=== PATIENT | male | born 1945 | race Caucasian/White ===

== ENCOUNTER 2021-02-01 14:21 | Inpatient (IN) | payer MEDICARE, OTHER ==
[~2021-02-01] VITALS: Ht 175.3 cm; Wt 80.4 kg
[2021-02-01 14:23] VITALS: BP 167/81
[2021-02-01] MEDS ORDERED: DILTIAZEM 25MG INJ IVP SCH (15:30)
[2021-02-01 15:45] LABS: BASOPHILS % (AUTO) 0.2 % (0.0-5.0); HEMATOCRIT 25.7 % (42-54); LYMPHOCYTES % (AUTO) 5.9 % (21.0-51.0); MEAN CORPUSCULAR HEMOGLOBIN 29.4 pg (27.0-33.0); MEAN CORPUSCULAR HGB CONC 34.2 g/dL (32.0-36.0); MONOCYTES % (AUTO) 6.8 % (3.0-13.0); NEUTROPHILS % (AUTO) 86.7 % (40.0-77.0); PLATELET COUNT (AUTO) 164 K/uL (130-400); RED BLOOD CELL COUNT(AUTO) 2.99 MIL/uL (4.50-6.20); RED CELL DISTRIBUTION WIDTH 13.1 % (11.0-15.5); WHITE BLOOD COUNT (AUTO) 4.6 K/uL (4.8-10.8)
[2021-02-01] MEDS ORDERED: DILTIAZEM 50MG VIAL IV ONE (15:49)
[2021-02-01 15:58] LABS: CREATININE 4.7 mg/dL (0.5-1.5); POTASSIUM 3.9 mmol/L (3.5-5.1)
[2021-02-01 16:00] VITALS: BP 115/68
[2021-02-01 16:02] LABS: ALBUMIN 3.1 g/dL (3.5-5.0); BILIRUBIN,TOTAL 1.4 mg/dL (0.2-1.0); MAGNESIUM 1.1 mg/dL (1.80-2.40); PHOSPHORUS 4.4 mg/dL (2.5-4.9); TOTAL PROTEIN, SERUM 7.1 g/dL (6.0-8.3)
[2021-02-01 16:09] LABS: APPEARANCE,URINE CLOUDY (CLEAR); BILIRUBIN,URINE NEGATIVE (NEGATIVE); COLOR,URINE RED (YELLOW); GLUCOSE, URINE (UA) NEGATIVE (NEGATIVE); KETONES,URINE 5 mg/dL (NEGATIVE); LEUKOCYTE ESTERASE ,URINE MODERATE (NEGATIVE); NITRATE,URINE POSITIVE (NEGATIVE); OCCULT BLOOD,URINE LARGE (NEGATIVE); PROTEIN,URINE >=300 mg/dL (NEGATIVE)
[2021-02-01 16:17] LABS: BACTERIA,URINE Many /HPF (None Seen); MUCUS,URINE Few LPF (None Seen); SQUAMOUS EPITHELIAL CELL,UR 0-2 /HPF (0-2); WBC,URINE 51-100 /HPF (0-1)
[2021-02-01] MEDS ORDERED: CEFTRIAXONE 1G VIAL IVP ONE (17:00)
[2021-02-01] MEDS ORDERED: DILTIAZEM 25MG INJ IVP PRN (17:00)
[2021-02-01] MEDS ORDERED: 0.9%NACL 50ML 50 ML IV ONE (17:19)
[2021-02-01] MEDS ORDERED: LACTULOSE 20 GM/30 ML UDCUP PO PRN (17:30)
[2021-02-01] MEDS ORDERED: ONDANSETRON 4MG INJ IV PRN (17:30)
[2021-02-01] MEDS ORDERED: CEFTRIAXONE 1G VIAL IV SCH (17:30)
[2021-02-01] MEDS ORDERED: DILTIAZEM 125 MG/25 ML INJ IV ONE (17:42)
[2021-02-01] MEDS: 0.9%NACL 1000ML 1,000 ML IV SCH (18:12)
[2021-02-01 18:20] LABS: INR 1.27 (0.85-1.15); PROTHROMBIN TIME 13.5 SEC (9.6-11.6)
[2021-02-01 18:21] LABS: PARTIAL THROMBOPLASTIN TIME 50.6 SEC (26.3-35.5)
[2021-02-01] MEDS: MAGNESIUM 2GM PREMIX 50ML 50 ML IV PRN (18:32)
[2021-02-01] MEDS: DILTIAZEM 125MG+100 ML NS 125 ML IV PRN (18:49)
[2021-02-01 18:54] VITALS: BP 120/64
[2021-02-01] MEDS ORDERED: DILTIAZEM 125 MG/25 ML INJ 125 MG in 0.9%NACL 100ML 100 ML IV SCH (19:00)
[2021-02-01 19:08] LABS: HEMATOCRIT 25.1 % (42-54)
[2021-02-01 19:21] LABS: HEMOGLOBIN A1C 5.7 % (4.0-6.0)
[2021-02-01 19:36] LABS: THYROID STIMULATING HORMONE 3.01 uIU/mL (0.36-3.74)
[2021-02-01 19:38] VITALS: BP 113/75
[2021-02-01 20:31] VITALS: BP 120/68
[2021-02-01] MEDS: ACETAMINOPHEN 325 MG TAB PO PRN (20:39)
[2021-02-01 22:36] VITALS: BP 101/58
[2021-02-02] VITALS (10 sets, daily range): BP systolic 98–115; BP diastolic 47–63
[2021-02-02 01:25] LABS: HEMATOCRIT 24.2 % (42-54)
[2021-02-02] MEDS: 0.9%NACL 1000ML 1,000 ML IV SCH (06:54)
[2021-02-02 07:16] LABS: HEMATOCRIT 25.4 % (42-54); LYMPHOCYTES % (AUTO) 7.9 % (21.0-51.0); MEAN CORPUSCULAR HEMOGLOBIN 29.3 pg (27.0-33.0); MEAN CORPUSCULAR HGB CONC 33.9 g/dL (32.0-36.0); MEAN CORPUSCULAR VOLUME 86.4 fL (79-99); NEUTROPHILS % (AUTO) 82.5 % (40.0-77.0); PLATELET COUNT (AUTO) 123 K/uL (130-400); RED BLOOD CELL COUNT(AUTO) 2.94 MIL/uL (4.50-6.20); RED CELL DISTRIBUTION WIDTH 13.2 % (11.0-15.5); WHITE BLOOD COUNT (AUTO) 3.4 K/uL (4.8-10.8)
[2021-02-02 07:29] LABS: CREATININE 4.4 mg/dL (0.5-1.5); MAGNESIUM 1.7 mg/dL (1.80-2.40)
[2021-02-02] MEDS ORDERED: APIX5TAB PO (07:53)
[2021-02-02] MEDS: PANTOPRAZOLE 40 MG TAB DR PO SCH (09:28)
[2021-02-02] MEDS: ACETAMINOPHEN 325 MG TAB PO PRN (09:29)
[2021-02-02] MEDS ORDERED: PIP/TAZ ZOSYN 3.375G 3.375 GM VIAL IVPB SCH (11:00)
[2021-02-02 13:44] LABS: URIC ACID 6.7 mg/dL (2.6-7.2)
[2021-02-02 13:51] LABS: CRP QUANTITATIVE 347.1 mg/L (0.00-9.0)
[2021-02-02] MEDS: ZOSYN 3.375GM+NS 50ML 50 ML IV SCH ×2 (13:58→22:43)
[2021-02-02] MEDS ORDERED: PHARMACY COMMUNICATION MISC SCH (15:30)
[2021-02-02] MEDS: DILTIAZEM 180MG SR CAP PO SCH (18:01)
[2021-02-02] MEDS: LINEZOLID 600 MG/ISO-OSM 300 ML IV SCH (18:02)
[2021-02-02] MEDS: LACTATED RINGERS 1000ML 1,000 ML IV SCH (18:02)
[2021-02-02] MEDS ORDERED: THIAMINE HCL 100 MG TABLET PO ONE (19:30)
[2021-02-02] MEDS ORDERED: FOLIC ACID 1 MG TABLET PO ONE (19:30)
[2021-02-02] MEDS ORDERED: FOLIC ACID 1 MG TABLET ONE (20:43)
[2021-02-02] MEDS ORDERED: THIAMINE HCL 100 MG TABLET ONE (20:43)
[2021-02-03] VITALS (40 sets, daily range): BP systolic 71–103; BP diastolic 27–62
[2021-02-03 04:38] LABS: HEMATOCRIT 21.6 % (42-54); MEAN CORPUSCULAR HEMOGLOBIN 29.3 pg (27.0-33.0); MEAN CORPUSCULAR HGB CONC 34.7 g/dL (32.0-36.0); MEAN CORPUSCULAR VOLUME 84.4 fL (79-99); PLATELET COUNT (AUTO) 118 K/uL (130-400); RED BLOOD CELL COUNT(AUTO) 2.56 MIL/uL (4.50-6.20); RED CELL DISTRIBUTION WIDTH 12.9 % (11.0-15.5); WHITE BLOOD COUNT (AUTO) 2.7 K/uL (4.8-10.8)
[2021-02-03] MEDS: LINEZOLID 600 MG/ISO-OSM 300 ML IV SCH ×2 (04:39→16:54)
[2021-02-03 04:50] LABS: BILIRUBIN,TOTAL 0.9 mg/dL (0.2-1.0); CREATININE 4.9 mg/dL (0.5-1.5); MAGNESIUM 1.6 mg/dL (1.80-2.40); PHOSPHORUS 6.1 mg/dL (2.5-4.9); POTASSIUM 4.2 mmol/L (3.5-5.1); TOTAL PROTEIN, SERUM 5.5 g/dL (6.0-8.3); URIC ACID 6.7 mg/dL (2.6-7.2)
[2021-02-03 06:00] LABS: INR 1.07 (0.85-1.15); PROTHROMBIN TIME 11.6 SEC (9.6-11.6)
[2021-02-03 06:01] LABS: PARTIAL THROMBOPLASTIN TIME 56.9 SEC (26.3-35.5)
[2021-02-03 06:05] LABS: BAND NEUTROPHILS % (MANUAL) 3 % (0-2); LYMPHOCYTES % (MANUAL) 13 % (22-44); MONOCYTES % (MANUAL) 4 % (2-9); REACTIVE LYMPHOCYTES 2 % (0-0); SEGMENTED NEUTROPHILS % 78 % (40-70)
[2021-02-03 06:06] LABS: MAN.DIFF COMMENT-IMPRESSION MANUAL DIFFERENTIAL
[2021-02-03 06:09] LABS: PLATELET MORPHOLOGY COMMENT ADEQUATE
[2021-02-03] MEDS: DILTIAZEM 180MG SR CAP PO SCH (07:12)
[2021-02-03] MEDS: PANTOPRAZOLE 40 MG TAB DR PO SCH (07:12)
[2021-02-03] MEDS: DILTIAZEM 125MG+100 ML NS 125 ML IV PRN (07:52)
[2021-02-03] MEDS: MAGNESIUM 2GM PREMIX 50ML 50 ML IV PRN (08:23)
[2021-02-03] MEDS: METOPROLOL TARTRATE 25 MG TAB PO SCH ×2 (08:23→20:29)
[2021-02-03] MEDS: LACTATED RINGERS 1000ML 1,000 ML IV SCH (08:23)
[2021-02-03] MEDS: THIAMINE HCL 100 MG TABLET PO SCH (08:29)
[2021-02-03] MEDS: FOLIC ACID 1 MG TABLET PO SCH (08:29)
[2021-02-03] MEDS ORDERED: LIDOCAINE PF 100MG/5ML (2%) SYRINGE 5ML ONE (10:25)
[2021-02-03] MEDS ORDERED: PHENYLEPHRINE HCL 10 MG/ML 1ML VIAL IV ONE (10:25)
[2021-02-03] MEDS ORDERED: MIDAZOLAM HCL 1 MG/ML 5ML VIAL ONE (10:26)
[2021-02-03] MEDS ORDERED: ROPIVACAINE 0.5% 5MG/ML 30ML IJ ONE (10:28)
[2021-02-03] MEDS ORDERED: LIDOCAINE HCL 400MG/20ML VIAL ONE (10:28)
[2021-02-03] MEDS: ZOSYN 3.375GM+NS 50ML 50 ML IV SCH ×2 (10:44→22:44)
[2021-02-03] MEDS ORDERED: FENTANYL CITRATE PF 50 MCG/1 ML 2ML VIAL ONE (11:36)
[2021-02-03] MEDS ORDERED: PROPOFOL 10 MG/ML 20ML VIAL IV ONE (11:38)
[2021-02-03] MEDS ORDERED: TRANEXAMIC ACID 1000MG/10ML ONE ×3 (11:50)
[2021-02-03] MEDS ORDERED: KETAMINE 50MG/ML SYRINGE 50 MG/ML DISP.SYRIN IV ONE (11:54)
[2021-02-03] MEDS: SODIUM HYPOCHLORITE 0.125% 473 ML SOLUTION TP SCH (12:00)
[2021-02-03 14:35] LABS: LYMPHOCYTES % (AUTO) 7.6 % (21.0-51.0); MEAN CORPUSCULAR HEMOGLOBIN 29.1 pg (27.0-33.0); MEAN CORPUSCULAR HGB CONC 34.3 g/dL (32.0-36.0); MEAN CORPUSCULAR VOLUME 84.8 fL (79-99); MONOCYTES % (AUTO) 14.5 % (3.0-13.0); NEUTROPHILS % (AUTO) 77.3 % (40.0-77.0); PLATELET COUNT (AUTO) 125 K/uL (130-400); RED BLOOD CELL COUNT(AUTO) 2.44 MIL/uL (4.50-6.20); RED CELL DISTRIBUTION WIDTH 13.1 % (11.0-15.5); WHITE BLOOD COUNT (AUTO) 3.2 K/uL (4.8-10.8)
[2021-02-03 14:39] LABS: HEMATOCRIT 20.7 % (42-54)
[2021-02-03 14:51] LABS: CREATININE 4.7 mg/dL (0.5-1.5); MAGNESIUM 1.8 mg/dL (1.80-2.40); POTASSIUM 3.9 mmol/L (3.5-5.1)
[2021-02-03 15:45] LABS: % IRON SATURATION 6.8 % (30-44)
[2021-02-03] MEDS: MIDODRINE HCL 5 MG TABLET PO SCH ×2 (16:54→20:30)
[2021-02-03] MEDS: EPOETIN ALFA-EPBX (ESRD) 10,000 UNIT/ML VIAL SQ SCH (16:54)
[2021-02-03 19:15] LABS: HEMATOCRIT 24.2 % (42-54)
[2021-02-03] MEDS ORDERED: 0.9% NACL 500ML IV.SOLN 500 ML IV SCH (22:30)
[2021-02-03] MEDS ORDERED: NOREPINEPHRINE 4MG/NS 250ML 250 ML IV SCH (22:30)
[2021-02-04] VITALS (49 sets, daily range): BP systolic 87–132; BP diastolic 45–93
[2021-02-04 00:42] LABS: HEMATOCRIT 24.5 % (42-54)
[2021-02-04] MEDS ORDERED: NOREPINEPHRINE 4MG/NS 250ML 250 ML IV ONE (02:11)
[2021-02-04] MEDS ORDERED: NOREPINEPHRINE 4MG/NS 250ML 250 ML IV SCH (03:00)
[2021-02-04 03:41] LABS: EOSINOPHILS % (AUTO) 0.6 % (0.0-8.0); HEMATOCRIT 22.5 % (42-54); LYMPHOCYTES % (AUTO) 12.6 % (21.0-51.0); MEAN CORPUSCULAR HEMOGLOBIN 29.3 pg (27.0-33.0); MEAN CORPUSCULAR HGB CONC 33.3 g/dL (32.0-36.0); MEAN CORPUSCULAR VOLUME 87.9 fL (79-99); MONOCYTES % (AUTO) 15.9 % (3.0-13.0); PLATELET COUNT (AUTO) 143 K/uL (130-400); RED BLOOD CELL COUNT(AUTO) 2.56 MIL/uL (4.50-6.20); RED CELL DISTRIBUTION WIDTH 13.2 % (11.0-15.5); WHITE BLOOD COUNT (AUTO) 3.4 K/uL (4.8-10.8)
[2021-02-04 03:59] LABS: ALBUMIN 1.8 g/dL (3.5-5.0); BILIRUBIN,TOTAL 0.7 mg/dL (0.2-1.0); CREATININE 4.9 mg/dL (0.5-1.5); MAGNESIUM 1.9 mg/dL (1.80-2.40); POTASSIUM 3.8 mmol/L (3.5-5.1); TOTAL PROTEIN, SERUM 5.4 g/dL (6.0-8.3)
[2021-02-04 04:48] LABS: ERYTHROCYTE SEDIMENTATION RATE 129 MM/HR (0-20)
[2021-02-04] MEDS: LINEZOLID 600 MG/ISO-OSM 300 ML IV SCH ×2 (05:03→17:10)
[2021-02-04] MEDS: THIAMINE HCL 100 MG TABLET PO SCH (08:41)
[2021-02-04] MEDS: HYDROCODONE/ACETAMINOPHEN 10/325 MG TAB PO PRN (08:41)
[2021-02-04] MEDS: MIDODRINE HCL 5 MG TABLET PO SCH ×3 (08:41→20:57)
[2021-02-04] MEDS: PANTOPRAZOLE 40 MG TAB DR PO SCH (08:42)
[2021-02-04] MEDS: FOLIC ACID 1 MG TABLET PO SCH (08:42)
[2021-02-04] MEDS: METOPROLOL TARTRATE 25 MG TAB PO SCH ×2 (09:00→20:35)
[2021-02-04] MEDS: DILTIAZEM 180MG SR CAP PO SCH (09:00)
[2021-02-04] MEDS: ZOSYN 3.375GM+NS 50ML 50 ML IV SCH ×2 (11:39→20:57)
[2021-02-04] MEDS: SODIUM HYPOCHLORITE 0.125% 473 ML SOLUTION TP SCH (12:00)
[2021-02-04 12:07] LABS: HEMATOCRIT 24.4 % (42-54)
[2021-02-05] VITALS (36 sets, daily range): BP systolic 82–128; BP diastolic 30–76
[2021-02-05] MEDS: DILTIAZEM 180MG SR CAP PO SCH ×2 (01:30→08:13)
[2021-02-05] MEDS: MIDODRINE HCL 5 MG TABLET PO SCH ×4 (01:30→21:03)
[2021-02-05] MEDS ORDERED: DILTIAZEM 25MG INJ IVP SCH (02:00)
[2021-02-05] MEDS: DILTIAZEM 125MG+100 ML NS 125 ML IV PRN (02:10)
[2021-02-05 03:41] LABS: HEMATOCRIT 21.6 % (42-54); MEAN CORPUSCULAR HEMOGLOBIN 28.6 pg (27.0-33.0); MEAN CORPUSCULAR HGB CONC 33.3 g/dL (32.0-36.0); MEAN CORPUSCULAR VOLUME 85.7 fL (79-99); RED BLOOD CELL COUNT(AUTO) 2.52 MIL/uL (4.50-6.20); RED CELL DISTRIBUTION WIDTH 13.2 % (11.0-15.5); WHITE BLOOD COUNT (AUTO) 1.9 K/uL (4.8-10.8)
[2021-02-05 03:53] LABS: CREATININE 5.1 mg/dL (0.5-1.5); POTASSIUM 3.4 mmol/L (3.5-5.1)
[2021-02-05] MEDS: LINEZOLID 600 MG/ISO-OSM 300 ML IV SCH ×2 (06:11→18:53)
[2021-02-05 07:28] LABS: ABG BASE EXCESS -8.3 mmol/L (-2.0-3.0); ABG OXYGEN SATURATION 95.7 % (95.0-99.0); ABG PCO2 26 mmHg (35-48)
[2021-02-05] MEDS: PANTOPRAZOLE 40 MG TAB DR PO SCH (08:12)
[2021-02-05] MEDS: THIAMINE HCL 100 MG TABLET PO SCH (08:13)
[2021-02-05] MEDS: FOLIC ACID 1 MG TABLET PO SCH (08:13)
[2021-02-05] MEDS: METOPROLOL TARTRATE 25 MG TAB PO SCH ×2 (08:14→21:03)
[2021-02-05] MEDS: SODIUM HYPOCHLORITE 0.125% 473 ML SOLUTION TP SCH (12:00)
[2021-02-05] MEDS: MEROPENEM 1 GM VIAL IVP SCH (13:30)
[2021-02-05 16:25] LABS: MEAN CORPUSCULAR HEMOGLOBIN 29.2 pg (27.0-33.0); MEAN CORPUSCULAR HGB CONC 33.3 g/dL (32.0-36.0); MEAN CORPUSCULAR VOLUME 87.5 fL (79-99); PLATELET COUNT (AUTO) 168 K/uL (130-400); RED CELL DISTRIBUTION WIDTH 13.5 % (11.0-15.5); WHITE BLOOD COUNT (AUTO) 1.9 K/uL (4.8-10.8)
[2021-02-05 16:26] LABS: APPEARANCE,URINE Cloudy (CLEAR); BILIRUBIN,URINE Negative (NEGATIVE); COLOR,URINE Yellow (YELLOW); GLUCOSE, URINE (UA) Negative (NEGATIVE); KETONES,URINE Negative (NEGATIVE); LEUKOCYTE ESTERASE ,URINE Trace (NEGATIVE); NITRATE,URINE Negative (NEGATIVE); OCCULT BLOOD,URINE Large (NEGATIVE); PROTEIN,URINE POS 1+ mg/dL (NEGATIVE)
[2021-02-05 16:42] LABS: ALBUMIN 1.7 g/dL (3.5-5.0); BILIRUBIN,TOTAL 0.5 mg/dL (0.2-1.0); CREATININE 5.4 mg/dL (0.5-1.5); POTASSIUM 3.6 mmol/L (3.5-5.1); TOTAL PROTEIN, SERUM 5.4 g/dL (6.0-8.3); URIC ACID 7.1 mg/dL (2.6-7.2)
[2021-02-05 16:44] LABS: % IRON SATURATION 16.8 % (30-44)
[2021-02-05 16:48] LABS: BACTERIA,URINE Few /HPF (None Seen); SQUAMOUS EPITHELIAL CELL,UR Few /HPF (0-2)
[2021-02-05 16:49] LABS: MUCUS,URINE Rare LPF (None Seen)
[2021-02-05 17:12] LABS: BAND NEUTROPHILS % (MANUAL) 2 % (0-2); EOSINOPHILS % (MANUAL) 6 % (1-6); LYMPHOCYTES % (MANUAL) 14 % (22-44); MAN.DIFF COMMENT-IMPRESSION MANUAL DIFFERENTIAL; MONOCYTES % (MANUAL) 5 % (2-9); REACTIVE LYMPHOCYTES 8 % (0-0); SEGMENTED NEUTROPHILS % 65 % (40-70)
[2021-02-05] MEDS: HYDROCODONE/ACETAMINOPHEN 10/325 MG TAB PO PRN (17:43)
[2021-02-05] MEDS: HEPARIN 5,000 UNIT VIAL SQ SCH (21:00)
[2021-02-05] MEDS: SODIUM BICARBONATE 650 MG TAB PO SCH (21:35)
[2021-02-05] MEDS ORDERED: COMPOUND IV MISC 1 EACH IVSOLN MISC PRN (22:00)
[2021-02-06] VITALS (14 sets, daily range): BP systolic 96–137; BP diastolic 41–81
[2021-02-06] MEDS: MEROPENEM 1 GM VIAL IVP SCH ×2 (01:12→13:14)
[2021-02-06] MEDS: ACETAMINOPHEN 325 MG TAB PO PRN (01:17)
[2021-02-06] MEDS: LINEZOLID 600 MG/ISO-OSM 300 ML IV SCH ×2 (06:53→18:36)
[2021-02-06 08:03] LABS: HEMATOCRIT 21.5 % (42-54); MEAN CORPUSCULAR HEMOGLOBIN 28.1 pg (27.0-33.0); RED BLOOD CELL COUNT(AUTO) 2.53 MIL/uL (4.50-6.20); RED CELL DISTRIBUTION WIDTH 13.6 % (11.0-15.5); WHITE BLOOD COUNT (AUTO) 1.8 K/uL (4.8-10.8)
[2021-02-06 08:15] LABS: CREATININE 5.9 mg/dL (0.5-1.5); POTASSIUM 3.5 mmol/L (3.5-5.1)
[2021-02-06] MEDS: DILTIAZEM 180MG SR CAP PO SCH (08:58)
[2021-02-06] MEDS: PANTOPRAZOLE 40 MG TAB DR PO SCH (08:58)
[2021-02-06] MEDS: FOLIC ACID 1 MG TABLET PO SCH (08:58)
[2021-02-06] MEDS: MIDODRINE HCL 5 MG TABLET PO SCH ×2 (08:58→21:00)
[2021-02-06] MEDS: THIAMINE HCL 100 MG TABLET PO SCH (08:58)
[2021-02-06] MEDS: SODIUM BICARBONATE 650 MG TAB PO SCH ×3 (08:58→20:54)
[2021-02-06] MEDS: METOPROLOL TARTRATE 25 MG TAB PO SCH (09:00)
[2021-02-06] MEDS: HEPARIN 5,000 UNIT VIAL SQ SCH ×2 (09:10→21:12)
[2021-02-06] MEDS: IRON SUCROSE COMPLEX 100 MG in 0.9%NACL 50ML 50 ML IV SCH (09:15)
[2021-02-06 09:22] LABS: CREATININE 5.8 mg/dL (0.5-1.5); POTASSIUM 3.6 mmol/L (3.5-5.1)
[2021-02-06 09:27] LABS: ALBUMIN 1.9 g/dL (3.5-5.0); BILIRUBIN,TOTAL 0.5 mg/dL (0.2-1.0); TOTAL PROTEIN, SERUM 5.9 g/dL (6.0-8.3)
[2021-02-06] MEDS: SODIUM HYPOCHLORITE 0.125% 473 ML SOLUTION TP SCH (12:00)
[2021-02-06] MEDS ORDERED: RENAL DOSE IV SCH (14:30)
[2021-02-06] MEDS ORDERED: TEMAZEPAM 7.5 MG CAPSULE PO PRN (14:30)
[2021-02-06] MEDS ORDERED: 0.9%NACL 1000ML 1,000 ML IV SCH (14:30)
[2021-02-06] MEDS ORDERED: 0.9% NACL 250ML 250 ML ONE (17:43)
[2021-02-06] MEDS ORDERED: FUROSEMIDE 40MG VIAL IV ONE (18:00)
[2021-02-06] MEDS ORDERED: FUROSEMIDE 40MG VIAL ONE (20:51)
[2021-02-06] MEDS: HYDROCODONE/ACETAMINOPHEN 10/325 MG TAB PO PRN (21:13)
[2021-02-07] VITALS (18 sets, daily range): BP systolic 93–146; BP diastolic 20–88
[2021-02-07] MEDS: MEROPENEM 1 GM VIAL IVP SCH ×2 (01:30→17:18)
[2021-02-07] MEDS ORDERED: 0.9%NACL 100ML 100 ML ONE ×2 (05:13→23:55)
[2021-02-07] MEDS: LINEZOLID 600 MG/ISO-OSM 300 ML IV SCH ×2 (05:17→17:18)
[2021-02-07 07:02] LABS: BASOPHILS % (AUTO) 0.9 % (0.0-5.0); EOSINOPHILS % (AUTO) 7.7 % (0.0-8.0); HEMATOCRIT 22.8 % (42-54); LYMPHOCYTES % (AUTO) 23.2 % (21.0-51.0); MEAN CORPUSCULAR HEMOGLOBIN 28.7 pg (27.0-33.0); MEAN CORPUSCULAR HGB CONC 33.3 g/dL (32.0-36.0); MONOCYTES % (AUTO) 18.6 % (3.0-13.0); NEUTROPHILS % (AUTO) 48.2 % (40.0-77.0); PLATELET COUNT (AUTO) 163 K/uL (130-400); RED BLOOD CELL COUNT(AUTO) 2.65 MIL/uL (4.50-6.20); RED CELL DISTRIBUTION WIDTH 13.6 % (11.0-15.5); WHITE BLOOD COUNT (AUTO) 2.2 K/uL (4.8-10.8)
[2021-02-07 07:08] LABS: ALBUMIN 1.9 g/dL (3.5-5.0); POTASSIUM 3.4 mmol/L (3.5-5.1)
[2021-02-07 07:40] LABS: BLASTS, MANUAL % 1 (0-0); EOSINOPHILS % (MANUAL) 5 % (1-6); LYMPHOCYTES % (MANUAL) 38 % (22-44); MAN.DIFF COMMENT-IMPRESSION MANUAL DIFFERENTIAL; MONOCYTES % (MANUAL) 9 % (2-9); PLATELET MORPHOLOGY COMMENT ADEQUATE; SEGMENTED NEUTROPHILS % 47 % (40-70)
[2021-02-07] MEDS: MIDODRINE HCL 5 MG TABLET PO SCH ×2 (08:45→21:00)
[2021-02-07] MEDS: PANTOPRAZOLE 40 MG TAB DR PO SCH (08:46)
[2021-02-07] MEDS: FOLIC ACID 1 MG TABLET PO SCH (08:46)
[2021-02-07] MEDS: SODIUM BICARBONATE 650 MG TAB PO SCH ×3 (08:46→22:44)
[2021-02-07] MEDS: THIAMINE HCL 100 MG TABLET PO SCH (08:46)
[2021-02-07] MEDS: DILTIAZEM 180MG SR CAP PO SCH (08:47)
[2021-02-07] MEDS: HEPARIN 5,000 UNIT VIAL SQ SCH ×2 (08:48→21:00)
[2021-02-07] MEDS: IRON SUCROSE COMPLEX 100 MG in 0.9%NACL 50ML 50 ML IV SCH (09:06)
[2021-02-07] MEDS ORDERED: METOPROLOL TARTRATE 1 MG/ML 5ML VIAL IV ONE ×2 (09:29→09:30)
[2021-02-07 09:30] LABS: ABG BASE EXCESS -6.9 mmol/L (-2.0-3.0); ABG HCO3 16.1 mmol/L (21.0-28.0); ABG OXYGEN SATURATION 96.2 % (95.0-99.0); ABG PCO2 27 mmHg (35-48)
[2021-02-07] MEDS ORDERED: PHENYLEPHRINE HCL 100 MG in 0.9% NACL 250ML 250 ML IV SCH (09:30)
[2021-02-07] MEDS ORDERED: SODIUM BICARB 50MEQ 50ML VIAL IV SCH (10:00)
[2021-02-07] MEDS: SODIUM HYPOCHLORITE 0.125% 473 ML SOLUTION TP SCH (12:00)
[2021-02-07 12:18] LABS: INR 1.01 (0.85-1.15)
[2021-02-07] MEDS ORDERED: SOLU-MEDROL 125MG VIAL IM ONE (13:00)
[2021-02-07] MEDS ORDERED: AMIODARONE 150MG VIAL 150 MG in DEXTROSE 5%-WATER 100 ML IV SCH (14:30)
[2021-02-07 14:49] LABS: ABG BASE EXCESS -5.3 mmol/L (-2.0-3.0); ABG HCO3 16.8 mmol/L (21.0-28.0); ABG OXYGEN SATURATION 96.9 % (95.0-99.0); ABG PCO2 25 mmHg (35-48)
[2021-02-07] MEDS ORDERED: AMIODARONE 900MG VIAL 360 MG in DEXTROSE 5%-WATER 200 ML IV SCH (15:00)
[2021-02-07] MEDS ORDERED: WATER IV SCH (21:00)
[2021-02-07] MEDS ORDERED: SOLU-MEDROL 40MG VIAL IVP SCH (21:00)
[2021-02-07] MEDS ORDERED: DEXTROSE 5% IV SCH (21:00)
[2021-02-07] MEDS ORDERED: AMIODARONE IV SCH (21:00)
[2021-02-07] MEDS ORDERED: DILTIAZEM 50MG VIAL IV ONE (23:51)
[2021-02-07] MEDS ORDERED: DILTIAZEM 25MG INJ IVP ONE (23:54)
[2021-02-08] MEDS: DILTIAZEM 125MG+100 ML NS 125 ML IV PRN ×2 (00:51→23:14)
[2021-02-08] MEDS ORDERED: 0.9%NACL 1000ML 1,000 ML IV ONE (01:04)
[2021-02-08] MEDS: MEROPENEM 1 GM VIAL IVP SCH ×2 (01:24→13:27)
[2021-02-08] MEDS: ACETAMINOPHEN 325 MG TAB PO PRN (01:24)
[2021-02-08] MEDS ORDERED: DIGOXIN 250 MCG/ML 2ML AMP ONE (01:28)
[2021-02-08] MEDS ORDERED: DIGOXIN 250 MCG/ML 2ML AMP IV ONE (01:30)
[2021-02-08 04:00] VITALS: BP 114/67
[2021-02-08] MEDS: LINEZOLID 600 MG/ISO-OSM 300 ML IV SCH ×2 (06:09→17:45)
[2021-02-08 07:25] LABS: BASOPHILS % (AUTO) 0.4 % (0.0-5.0); EOSINOPHILS % (AUTO) 5.1 % (0.0-8.0); LYMPHOCYTES % (AUTO) 16.1 % (21.0-51.0); MEAN CORPUSCULAR HEMOGLOBIN 29.3 pg (27.0-33.0); MEAN CORPUSCULAR HGB CONC 34.4 g/dL (32.0-36.0); MONOCYTES % (AUTO) 8.6 % (3.0-13.0); NEUTROPHILS % (AUTO) 68.6 % (40.0-77.0); PLATELET COUNT (AUTO) 172 K/uL (130-400); RED BLOOD CELL COUNT(AUTO) 2.94 MIL/uL (4.50-6.20); RED CELL DISTRIBUTION WIDTH 13.8 % (11.0-15.5); WHITE BLOOD COUNT (AUTO) 2.6 K/uL (4.8-10.8)
[2021-02-08 07:29] VITALS: BP 121/70
[2021-02-08 07:39] LABS: CREATININE 5.7 mg/dL (0.5-1.5); POTASSIUM 3.1 mmol/L (3.5-5.1)
[2021-02-08] MEDS: HYDROCODONE/ACETAMINOPHEN 10/325 MG TAB PO PRN (08:50)
[2021-02-08] MEDS: MIDODRINE HCL 5 MG TABLET PO SCH ×2 (08:51→20:49)
[2021-02-08] MEDS: PANTOPRAZOLE 40 MG TAB DR PO SCH (08:51)
[2021-02-08] MEDS: THIAMINE HCL 100 MG TABLET PO SCH (08:51)
[2021-02-08] MEDS: SODIUM BICARBONATE 650 MG TAB PO SCH ×3 (08:51→22:50)
[2021-02-08] MEDS: FOLIC ACID 1 MG TABLET PO SCH (08:51)
[2021-02-08] MEDS: HEPARIN 5,000 UNIT VIAL SQ SCH ×2 (08:52→22:49)
[2021-02-08] MEDS: DILTIAZEM 180MG SR CAP PO SCH (09:00)
[2021-02-08 09:12] LABS: BAND NEUTROPHILS % (MANUAL) 1 % (0-2); EOSINOPHILS % (MANUAL) 4 % (1-6); LYMPHOCYTES % (MANUAL) 22 % (22-44); MAN.DIFF COMMENT-IMPRESSION MANUAL DIFFERENTIAL; MONOCYTES % (MANUAL) 10 % (2-9); PLATELET MORPHOLOGY COMMENT ADEQUATE; SEGMENTED NEUTROPHILS % 63 % (40-70)
[2021-02-08] MEDS: IRON SUCROSE COMPLEX 100 MG in 0.9%NACL 50ML 50 ML IV SCH (10:23)
[2021-02-08] MEDS: SODIUM HYPOCHLORITE 0.125% 473 ML SOLUTION TP SCH (12:00)
[2021-02-08 12:30] VITALS: BP 133/85
[2021-02-08] MEDS: FUROSEMIDE 20MG VIAL IV SCH ×2 (13:27→22:48)
[2021-02-08 16:38] VITALS: BP 136/86
[2021-02-08] MEDS: IPRATROPIUM 0.5 MG/2.5 ML INH IH SCH ×2 (18:25→23:43)
[2021-02-08 20:00] VITALS: BP 146/81
[2021-02-09] VITALS: BP 150/80
[2021-02-09] MEDS: MEROPENEM 1 GM VIAL IVP SCH ×2 (01:32→14:13)
[2021-02-09 04:00] VITALS: BP 133/61
[2021-02-09 04:20] LABS: ABG HCO3 20.9 mmol/L (21.0-28.0); ABG OXYGEN SATURATION 94.5 % (95.0-99.0); ABG PCO2 29 mmHg (35-48)
[2021-02-09 05:54] LABS: ALBUMIN 1.8 g/dL (3.5-5.0); BILIRUBIN,TOTAL 0.7 mg/dL (0.2-1.0); CREATININE 5.4 mg/dL (0.5-1.5); POTASSIUM 3.1 mmol/L (3.5-5.1); TOTAL PROTEIN, SERUM 5.7 g/dL (6.0-8.3)
[2021-02-09] MEDS: FUROSEMIDE 20MG VIAL IV SCH ×3 (06:16→21:39)
[2021-02-09] MEDS: LINEZOLID 600 MG/ISO-OSM 300 ML IV SCH ×2 (06:16→18:41)
[2021-02-09] MEDS: IPRATROPIUM 0.5 MG/2.5 ML INH IH SCH ×3 (07:20→18:44)
[2021-02-09 08:00] VITALS: BP 130/69
[2021-02-09] MEDS: MIDODRINE HCL 5 MG TABLET PO SCH ×2 (09:00→21:39)
[2021-02-09] MEDS: FOLIC ACID 1 MG TABLET PO SCH (10:55)
[2021-02-09] MEDS: PANTOPRAZOLE 40 MG TAB DR PO SCH (10:55)
[2021-02-09] MEDS: SODIUM BICARBONATE 650 MG TAB PO SCH ×3 (10:56→21:39)
[2021-02-09] MEDS: THIAMINE HCL 100 MG TABLET PO SCH (10:56)
[2021-02-09] MEDS: HEPARIN 5,000 UNIT VIAL SQ SCH ×2 (10:59→21:39)
[2021-02-09 12:00] VITALS: BP 128/62
[2021-02-09] MEDS: SODIUM HYPOCHLORITE 0.125% 473 ML SOLUTION TP SCH (12:00)
[2021-02-09] MEDS: DILTIAZEM 60MG TAB PO SCH ×2 (12:45→19:28)
[2021-02-09] MEDS: IRON SUCROSE COMPLEX 100 MG in 0.9%NACL 50ML 50 ML IV SCH (14:13)
[2021-02-09 16:00] VITALS: BP 137/53
[2021-02-09 20:00] VITALS: BP 134/66
[2021-02-09] MEDS ORDERED: [UNRECOGNIZED DRUG - OTHER] IV SCH (23:30)
[2021-02-09] MEDS ORDERED: ALBUMIN 25% IV SCH (23:30)
[2021-02-10] VITALS: BP 130/68
[2021-02-10] MEDS ORDERED: ALBUMIN (HUMAN) 25% 100 ML IV ONE (00:15)
[2021-02-10] MEDS: DILTIAZEM 60MG TAB PO SCH ×2 (00:22→05:41)
[2021-02-10] MEDS: MEROPENEM 1 GM VIAL IVP SCH ×2 (01:00→12:38)
[2021-02-10 04:00] VITALS: BP 122/63
[2021-02-10 04:01] LABS: HEMATOCRIT 23.7 % (42-54); MEAN CORPUSCULAR HEMOGLOBIN 29.6 pg (27.0-33.0); MEAN CORPUSCULAR HGB CONC 34.6 g/dL (32.0-36.0); MEAN CORPUSCULAR VOLUME 85.6 fL (79-99); RED BLOOD CELL COUNT(AUTO) 2.77 MIL/uL (4.50-6.20); RED CELL DISTRIBUTION WIDTH 13.3 % (11.0-15.5); WHITE BLOOD COUNT (AUTO) 4.2 K/uL (4.8-10.8)
[2021-02-10 04:09] LABS: ALBUMIN 2.2 g/dL (3.5-5.0); BILIRUBIN,TOTAL 0.9 mg/dL (0.2-1.0); CREATININE 5.1 mg/dL (0.5-1.5); CRP QUANTITATIVE 175.7 mg/L (0.00-9.0); DIGOXIN 1.39 ng/mL (0.50-2.00)
[2021-02-10 04:38] LABS: POTASSIUM 2.8 mmol/L (3.5-5.1)
[2021-02-10] MEDS ORDERED: KCL 20 MEQ ERTAB PO ONE (05:29)
[2021-02-10] MEDS: FUROSEMIDE 20MG VIAL IV SCH (05:41)
[2021-02-10] MEDS: LINEZOLID 600 MG/ISO-OSM 300 ML IV SCH ×2 (05:41→18:43)
[2021-02-10] MEDS: IPRATROPIUM 0.5 MG/2.5 ML INH IH SCH ×2 (06:42)
[2021-02-10] MEDS ORDERED: KCL 20 MEQ ERTAB PO SCH (06:52)
[2021-02-10 08:00] VITALS: BP 151/63
[2021-02-10] MEDS: MIDODRINE HCL 5 MG TABLET PO SCH ×2 (09:00→20:24)
[2021-02-10] MEDS ORDERED: DRONABINOL 2.5 MG CAP PO SCH (09:00)
[2021-02-10] MEDS ORDERED: FUROSEMIDE 40 MG TABLET PO SCH (09:00)
[2021-02-10] MEDS ORDERED: DILTIAZEM 180MG SR CAP PO SCH (09:00)
[2021-02-10] MEDS: FOLIC ACID 1 MG TABLET PO SCH (10:10)
[2021-02-10] MEDS: THIAMINE HCL 100 MG TABLET PO SCH (10:11)
[2021-02-10] MEDS: PANTOPRAZOLE 40 MG TAB DR PO SCH (10:11)
[2021-02-10] MEDS: SODIUM BICARBONATE 650 MG TAB PO SCH ×3 (10:11→20:24)
[2021-02-10] MEDS: EPOETIN ALFA-EPBX (ESRD) 10,000 UNIT/ML VIAL SQ SCH (10:12)
[2021-02-10] MEDS: HEPARIN 5,000 UNIT VIAL SQ SCH ×2 (10:21→20:37)
[2021-02-10 12:00] VITALS: BP 133/64
[2021-02-10] MEDS: IRON SUCROSE COMPLEX 100 MG in 0.9%NACL 50ML 50 ML IV SCH (12:11)
[2021-02-10] MEDS: MAGNESIUM 2GM PREMIX 50ML 50 ML IV PRN (12:38)
[2021-02-10 16:00] VITALS: BP 134/59
[2021-02-10 20:00] VITALS: BP 122/62
== END 2021-02-10 22:20 | DRG 463 ==
LOC: EDH 14:21 → EDHIP 17:18 → 4BH 02-02 08:48 → 2CH 02-03 14:35 → 2DH 02-07 16:03 → 4DH 02-08 18:58
PROVIDERS: ADMIT Internal Medicine; ATTEND Internal Medicine
PROC: 0SPD09Z Removal of Liner from Left Knee Joint, Open Approach (ICD-10-PCS; principal; 2021-02-03 11:14)
PROC: 0SUD09Z Supplement Left Knee Joint with Liner, Open Approach (ICD-10-PCS; 2021-02-03 11:14)
PROC: 30233N1 Transfusion of Nonautologous Red Blood Cells into Peripheral Vein, Percutaneous Approach (ICD-10-PCS; 2021-02-06)
PROC: 02HV33Z Insertion of Infusion Device into Superior Vena Cava, Percutaneous Approach (ICD-10-PCS; 2021-02-08)
DX: T84.54XA Infection and inflammatory reaction due to internal left knee prosthesis, initial encounter (principal); A41.50 Gram-negative sepsis, unspecified; I21.A1 Myocardial infarction type 2; E43 Unspecified severe protein-calorie malnutrition; R65.21 Severe sepsis with septic shock; E87.1 Hypo-osmolality and hyponatremia; N17.9 Acute kidney failure, unspecified; N18.5 Chronic kidney disease, stage 5; N13.6 Pyonephrosis; D61.818 Other pancytopenia; D62 Acute posthemorrhagic anemia; D68.59 Other primary thrombophilia; E87.2 Acidosis; I42.9 Cardiomyopathy, unspecified; I13.2 Hypertensive heart and chronic kidney disease with heart failure and with stage 5 chronic kidney disease, or end stage renal disease; I48.0 Paroxysmal atrial fibrillation; E83.42 Hypomagnesemia; R63.4 Abnormal weight loss; I50.9 Heart failure, unspecified; E11.22 Type 2 diabetes mellitus with diabetic chronic kidney disease; D63.1 Anemia in chronic kidney disease; M19.90 Unspecified osteoarthritis, unspecified site; I95.81 Postprocedural hypotension; D50.9 Iron deficiency anemia, unspecified; E66.9 Obesity, unspecified; E78.5 Hyperlipidemia, unspecified; E87.6 Hypokalemia; E87.70 Fluid overload, unspecified; E89.0 Postprocedural hypothyroidism; I25.10 Atherosclerotic heart disease of native coronary artery without angina pectoris; I45.9 Conduction disorder, unspecified; N40.0 Benign prostatic hyperplasia without lower urinary tract symptoms; Z96.653 Presence of artificial knee joint, bilateral; Z20.822 Contact with and (suspected) exposure to COVID-19; E87.8 Other disorders of electrolyte and fluid balance, not elsewhere classified; R53.81 Other malaise; Y83.1 Surgical operation with implant of artificial internal device as the cause of abnormal reaction of the patient, or of later complication, without mention of misadventure at the time of the procedure; Y92.89 Other specified places as the place of occurrence of the external cause; Z68.26 Body mass index [BMI] 26.0-26.9, adult; Z79.01 Long term (current) use of anticoagulants; Z79.899 Other long term (current) drug therapy; Z87.891 Personal history of nicotine dependence; Z91.19 Patient's noncompliance with other medical treatment and regimen; Z95.0 Presence of cardiac pacemaker; Z95.1 Presence of aortocoronary bypass graft
CPT/HCPCS: 36415; 36430; 36600; 70450; 71045; 73562; 73700; 74176; 76770; 80048; 80053; 80061; 80162; 81001; 82040; 82435; 82728; 82803; 82947; 83036; 83520; 83540; 83550; 83605; 83690; 83735; 83880; 84100; 84132; 84145; 84295; 84443; 84484; 84550; 85014; 85018; 85025; 85027; 85378; 85610; 85651; 85730; 86038; 86140; 86160; 86255; 86701; 86850; 86900; 86901; 86923; 87040; 87070; 87088; 87205; 87390; 87426; 93005; 93306; 93356; 94640; 94664; 94667; 94668; A4344; A4606; C1751; C1894; G0378; J0282; J0696; J1160; J1644; J1756; J1940; J2001; J2020; J2185; J2250; J2370; J2405; J2543; J2704; J2795; J3010; J3475; J3490; J7030; J7050; J7060; J7120; P9016; P9046; Q0167

== ENCOUNTER 2023-09-24 18:09 | Inpatient (IN) | payer OTHER ==
[~2023-09-24] VITALS: Ht 175.3 cm; Wt 74.9 kg
[~2023-09-24 18:09] MED LIST: AMIO200T68 PO; AMLO-257 PO; FERR-72 PO; FURO40TA7 PO; MEMA10TA55 PO; METO25TA6 PO; PANT40TA54 PO; RIVA15TA PO
[2023-09-24] MEDS: DILTIAZEM 25MG INJ IVP ONE (18:40)
[2023-09-24 18:48] LABS: BASOPHILS # (AUTO) 0.06 K/uL (0.00-0.20); BASOPHILS % (AUTO) 0.8 % (0.0-5.0); EOSINOPHILS % (AUTO) 4.1 % (0.0-8.0); HEMATOCRIT 39.8 % (42-54); IMMATURE GRANULOCYTE ABSOLUTE 0.02 K/uL (0-1); LYMPHOCYTES # (AUTO) 0.9 K/uL (1.0-4.8); LYMPHOCYTES % (AUTO) 12.1 % (21.0-51.0); MEAN CORPUSCULAR HEMOGLOBIN 28.6 pg (27.0-33.0); MEAN CORPUSCULAR HGB CONC 32.7 g/dL (32.0-36.0); MEAN CORPUSCULAR VOLUME 87.7 fL (79-99); MONOCYTES # (AUTO) 0.6 K/uL (0.1-1.0); MONOCYTES % (AUTO) 7.7 % (3.0-13.0); NEUTROPHILS # (AUTO) 5.5 K/uL (1.8-7.7); PLATELET COUNT (AUTO) 247 K/uL (130-400); RED BLOOD CELL COUNT(AUTO) 4.54 MIL/uL (4.50-6.20); RED CELL DISTRIBUTION WIDTH 14.8 % (11.0-15.5); WHITE BLOOD COUNT (AUTO) 7.4 K/uL (4.8-10.8)
[2023-09-24] MEDS: DILTIAZEM 125 MG/25 ML INJ 125 MG in 0.9%NACL 100ML 100 ML IV SCH (18:48)
[2023-09-24] MEDS: DILTIAZEM 125MG+100 ML NS 125 ML IV ONE (18:49)
[2023-09-24] MEDS: DILTIAZEM 125 MG/25 ML INJ IV ONE (18:49)
[2023-09-24 19:06] LABS: INR 1.18 (0.85-1.15); PROTHROMBIN TIME 13.8 SEC (9.6-11.6)
[2023-09-24 19:07] LABS: PARTIAL THROMBOPLASTIN TIME 58.9 SEC (26.3-35.5)
[2023-09-24 19:09] LABS: CREATININE 1.9 mg/dL (0.5-1.3); POTASSIUM 3.7 mmol/L (3.5-5.1)
[2023-09-24 19:14] LABS: ALBUMIN 4.4 g/dL (3.5-5.0); BILIRUBIN,TOTAL 1.9 mg/dL (0.2-1.0); TOTAL PROTEIN, SERUM 8.6 g/dL (6.0-8.3)
[2023-09-24 19:20] LABS: B-TYPE NATRIURETIC PEPTIDE 831 pg/mL (0-100)
[2023-09-24] MEDS: NITROGLYCERIN 1GM OINT 1 INCH/1GM TD ONE (21:10)
[2023-09-24] MEDS: ENOXAPARIN SODIUM 100 MG/1 ML SQ ONE (21:14)
[2023-09-24] MEDS: NITROGLYCERIN 50MG/D5W 250ML 1 BOT ONE (21:15)
[2023-09-24] MEDS: CLOPIDOGREL 300MG TAB PO ONE (21:15)
[2023-09-24] MEDS: NITROGLYCERIN 50MG/D5W 250ML 250 BOT IV SCH (21:17)
[2023-09-24 21:52] LABS: INR 1.18 (0.85-1.15); PROTHROMBIN TIME 13.8 SEC (9.6-11.6)
[2023-09-24 21:53] LABS: PARTIAL THROMBOPLASTIN TIME 58.4 SEC (26.3-35.5)
[2023-09-24] MEDS: ENOXAPARIN SODIUM 80 MG/0.8 ML SQ ONE (22:03)
[2023-09-24] MEDS: ASPIRIN 325MG TAB PO ONE (22:45)
[2023-09-25 00:46] LABS: APPEARANCE,URINE CLEAR (CLEAR); BILIRUBIN,URINE NEGATIVE (NEGATIVE); COLOR,URINE LIGHT-YELLOW (YELLOW); GLUCOSE, URINE (UA) NEGATIVE (NEGATIVE); KETONES,URINE NEGATIVE (NEGATIVE); LEUKOCYTE ESTERASE ,URINE NEGATIVE Leu/uL (NEGATIVE); NITRATE,URINE NEGATIVE (NEGATIVE); OCCULT BLOOD,URINE NEGATIVE (NEGATIVE); PROTEIN,URINE 30 mg/dL (NEGATIVE); UROBILINOGEN,URINE 0.2 mg/dL (0.2-1.0)
[2023-09-25 00:51] LABS: ADD UA MICROSCOPIC YES
[2023-09-25 00:52] LABS: MUCUS,URINE RARE LPF (None Seen); SQUAMOUS EPITHELIAL CELL,UR RARE /HPF (0-2); WBC,URINE 0-1 /HPF (0-1)
[2023-09-25] MEDS ORDERED: ACETAMINOPHEN 325 MG TAB PO PRN (01:30)
[2023-09-25] MEDS ORDERED: MORPHINE 2 MG SYG IV PRN (01:30)
[2023-09-25] MEDS ORDERED: ONDANSETRON 4MG INJ IV PRN (01:30)
[2023-09-25] MEDS: ENOXAPARIN SODIUM 40 MG/0.4 ML SYRINGE SQ SCH (03:10)
[2023-09-25] MEDS: FUROSEMIDE 20MG VIAL IV SCH (05:30)
[2023-09-25] MEDS ORDERED: ALBU18HF7 IH (06:28)
[2023-09-25] MEDS ORDERED: AMLO-258 PO (06:30)
[2023-09-25 06:39] LABS: BASOPHILS # (AUTO) 0.04 K/uL (0.00-0.20); BASOPHILS % (AUTO) 0.6 % (0.0-5.0); EOSINOPHILS % (AUTO) 7.8 % (0.0-8.0); HEMATOCRIT 35.3 % (42-54); IMMATURE GRANULOCYTE ABSOLUTE 0.02 K/uL (0-1); LYMPHOCYTES # (AUTO) 0.6 K/uL (1.0-4.8); LYMPHOCYTES % (AUTO) 9.7 % (21.0-51.0); MEAN CORPUSCULAR HEMOGLOBIN 28.5 pg (27.0-33.0); MEAN CORPUSCULAR HGB CONC 33.1 g/dL (32.0-36.0); MEAN CORPUSCULAR VOLUME 86.1 fL (79-99); MONOCYTES # (AUTO) 0.5 K/uL (0.1-1.0); MONOCYTES % (AUTO) 7.7 % (3.0-13.0); NEUTROPHILS # (AUTO) 4.7 K/uL (1.8-7.7); NEUTROPHILS % (AUTO) 73.9 % (40.0-77.0); PLATELET COUNT (AUTO) 214 K/uL (130-400); WHITE BLOOD COUNT (AUTO) 6.4 K/uL (4.8-10.8)
[2023-09-25 07:09] LABS: ALBUMIN 3.5 g/dL (3.5-5.0); BILIRUBIN,TOTAL 2.2 mg/dL (0.2-1.0); CREATININE 1.6 mg/dL (0.5-1.3); POTASSIUM 3.7 mmol/L (3.5-5.1); TOTAL PROTEIN, SERUM 7.2 g/dL (6.0-8.3)
[2023-09-25] MEDS ORDERED: ALBUTEROL SULFATE IH PRN (07:30)
[2023-09-25 08:24] LABS: ERYTHROCYTE SEDIMENTATION RATE 36 MM/HR (0-20)
[2023-09-25 08:50] LABS: COVID19 (SARS ANTIGEN RAPID) PRESUMPTIVE NEGATIVE (NEGATIVE); INFLUENZA TYPE A Negative For Type A (NEGATIVE)
[2023-09-25 09:01] LABS: INFLUENZA TYPE B Positive For Type B (NEGATIVE)
[2023-09-25] MEDS: METOPROLOL TARTRATE 25 MG TAB PO SCH ×2 (09:23→15:19)
[2023-09-25] MEDS: AMLODIPINE 5 MG TAB PO SCH (09:23)
[2023-09-25] MEDS: FAMOTIDINE 20MG VIAL IV SCH (09:23)
[2023-09-25] MEDS: CLOPIDOGREL 75MG TAB PO SCH (09:23)
[2023-09-25] MEDS: ASPIRIN 81 MG EC TAB PO SCH (09:23)
[2023-09-25] MEDS: MEMANTINE HCL 5 MG TABLET PO SCH (09:23)
[2023-09-25] MEDS: OSELTAMIVIR PHOSPHATE 75 MG CAP PO SCH (09:50)
[2023-09-25] MEDS: HEPARIN 25,000 UNITS/250ML D5W 250 ML IV SCH (13:23)
[2023-09-25] MEDS: AMIODARONE 900MG VIAL 150 MG in DEXTROSE 5%-WATER 100 ML IV SCH (13:28)
[2023-09-25] MEDS ORDERED: HEPARIN 5,000 UNIT VIAL IV PRN (13:30)
[2023-09-25] MEDS: AMIODARONE 900MG VIAL 360 MG in DEXTROSE 5%-WATER 200 ML IV SCH (13:54)
[2023-09-25 17:10] VITALS: BP 120/77; PULSE 102; RESP 20
[2023-09-25 19:45] VITALS: O2SAT 96
[2023-09-25 19:58] VITALS: BP 145/76; PULSE 94; RESP 22
[2023-09-25] MEDS: AMIODARONE 900MG VIAL 540 MG in DEXTROSE 5%-WATER 300 ML IV SCH (20:40)
[2023-09-25] MEDS: ATORVASTATIN 40 MG TABLET PO SCH (20:51)
[2023-09-25] MEDS ORDERED: METOPROLOL TARTRATE 25 MG TAB PO SCH (21:00)
[2023-09-25 23:29] VITALS: BP 106/76; PULSE 89; RESP 20
[2023-09-26] VITALS (8 sets, daily range): BP systolic 106–143; BP diastolic 72–89; PULSE 88–111; RESP 16–22; O2SAT 96–99
[2023-09-26 02:42] LABS: BASOPHILS # (AUTO) 0.05 K/uL (0.00-0.20); BASOPHILS % (AUTO) 0.6 % (0.0-5.0); EOSINOPHILS # (AUTO) 0.45 K/uL (0.00-0.70); EOSINOPHILS % (AUTO) 5.2 % (0.0-8.0); HEMATOCRIT 35.5 % (42-54); IMMATURE GRANULOCYTE ABSOLUTE 0.03 K/uL (0-1); LYMPHOCYTES # (AUTO) 0.7 K/uL (1.0-4.8); LYMPHOCYTES % (AUTO) 8.4 % (21.0-51.0); MEAN CORPUSCULAR HEMOGLOBIN 28.8 pg (27.0-33.0); MEAN CORPUSCULAR HGB CONC 32.7 g/dL (32.0-36.0); MEAN CORPUSCULAR VOLUME 88.1 fL (79-99); MONOCYTES # (AUTO) 0.6 K/uL (0.1-1.0); MONOCYTES % (AUTO) 7.1 % (3.0-13.0); NEUTROPHILS # (AUTO) 6.8 K/uL (1.8-7.7); NEUTROPHILS % (AUTO) 78.4 % (40.0-77.0); PLATELET COUNT (AUTO) 211 K/uL (130-400); RED BLOOD CELL COUNT(AUTO) 4.03 MIL/uL (4.50-6.20); RED CELL DISTRIBUTION WIDTH 15.1 % (11.0-15.5); WHITE BLOOD COUNT (AUTO) 8.7 K/uL (4.8-10.8)
[2023-09-26 03:05] LABS: CREATININE 1.8 mg/dL (0.5-1.3); MAGNESIUM 1.9 mg/dL (1.80-2.40); PHOSPHORUS 2.6 mg/dL (2.5-4.9); POTASSIUM 4.5 mmol/L (3.5-5.1)
[2023-09-26] MEDS: ACETAMINOPHEN 325 MG TAB PO PRN (13:01)
[2023-09-26] MEDS: METOPROLOL TARTRATE 50 MG TAB PO SCH (19:42)
[2023-09-27] VITALS (9 sets, daily range): BP systolic 108–158; BP diastolic 60–92; PULSE 72–86; RESP 16–20; O2SAT 92–97
[2023-09-27 04:40] LABS: BASOPHILS # (AUTO) 0.05 K/uL (0.00-0.20); BASOPHILS % (AUTO) 0.9 % (0.0-5.0); EOSINOPHILS # (AUTO) 0.42 K/uL (0.00-0.70); EOSINOPHILS % (AUTO) 7.3 % (0.0-8.0); HEMATOCRIT 31.2 % (42-54); IMMATURE GRANULOCYTE ABSOLUTE 0.02 K/uL (0-1); MEAN CORPUSCULAR HEMOGLOBIN 29.2 pg (27.0-33.0); MEAN CORPUSCULAR HGB CONC 33.7 g/dL (32.0-36.0); MEAN CORPUSCULAR VOLUME 86.7 fL (79-99); MONOCYTES # (AUTO) 0.7 K/uL (0.1-1.0); MONOCYTES % (AUTO) 11.3 % (3.0-13.0); NEUTROPHILS # (AUTO) 3.6 K/uL (1.8-7.7); NEUTROPHILS % (AUTO) 63.2 % (40.0-77.0); PLATELET COUNT (AUTO) 205 K/uL (130-400); RED CELL DISTRIBUTION WIDTH 14.9 % (11.0-15.5); WHITE BLOOD COUNT (AUTO) 5.8 K/uL (4.8-10.8)
[2023-09-27 04:57] LABS: CREATININE 2.1 mg/dL (0.5-1.3)
[2023-09-27] MEDS: AMLODIPINE 5 MG TAB PO SCH (10:28)
[2023-09-27] MEDS: APIXABAN 2.5 MG TABLET PO SCH (10:28)
[2023-09-27] MEDS: AMIODARONE 200 MG TABLET PO SCH (10:28)
[2023-09-27] MEDS: HEPARIN 25,000 UNITS/250ML D5W 250 ML IV SCH (13:13)
[2023-09-28] VITALS (7 sets, daily range): BP systolic 110–141; BP diastolic 59–81; PULSE 71–99; RESP 18; O2SAT 94–95
[2023-09-28 05:37] LABS: BASOPHILS # (AUTO) 0.05 K/uL (0.00-0.20); BASOPHILS % (AUTO) 0.8 % (0.0-5.0); EOSINOPHILS # (AUTO) 0.56 K/uL (0.00-0.70); EOSINOPHILS % (AUTO) 8.9 % (0.0-8.0); HEMATOCRIT 34.1 % (42-54); IMMATURE GRANULOCYTE ABSOLUTE 0.04 K/uL (0-1); LYMPHOCYTES % (AUTO) 15.5 % (21.0-51.0); MEAN CORPUSCULAR HEMOGLOBIN 28.9 pg (27.0-33.0); MEAN CORPUSCULAR VOLUME 90.5 fL (79-99); MONOCYTES # (AUTO) 0.6 K/uL (0.1-1.0); NEUTROPHILS # (AUTO) 4.1 K/uL (1.8-7.7); NEUTROPHILS % (AUTO) 65.2 % (40.0-77.0); PLATELET COUNT (AUTO) 213 K/uL (130-400); RED BLOOD CELL COUNT(AUTO) 3.77 MIL/uL (4.50-6.20); RED CELL DISTRIBUTION WIDTH 14.8 % (11.0-15.5); WHITE BLOOD COUNT (AUTO) 6.3 K/uL (4.8-10.8)
[2023-09-28 05:55] LABS: CREATININE 2.2 mg/dL (0.5-1.3); POTASSIUM 3.9 mmol/L (3.5-5.1)
[2023-09-28] MEDS: APIXABAN 2.5 MG TABLET PO SCH (08:56)
[2023-09-28] MEDS: FUROSEMIDE 20 MG TABLET PO SCH (08:57)
[2023-09-29 03:46] VITALS: BP 114/55; PULSE 70; RESP 18
[2023-09-29 04:01] LABS: HEMATOCRIT 33.3 % (42-54); MEAN CORPUSCULAR HGB CONC 32.4 g/dL (32.0-36.0); MEAN CORPUSCULAR VOLUME 89.5 fL (79-99); RED BLOOD CELL COUNT(AUTO) 3.72 MIL/uL (4.50-6.20); RED CELL DISTRIBUTION WIDTH 14.6 % (11.0-15.5); WHITE BLOOD COUNT (AUTO) 6.8 K/uL (4.8-10.8)
[2023-09-29 04:19] LABS: CREATININE 2.2 mg/dL (0.5-1.3); POTASSIUM 3.5 mmol/L (3.5-5.1)
[2023-09-29 08:09] VITALS: BP 120/76; PULSE 85; RESP 18
[2023-09-29 08:55] VITALS: O2SAT 94
[2023-09-29 11:18] VITALS: BP 131/73; PULSE 72; RESP 18
[2023-09-29] MEDS ORDERED: FURO20TA6 PO (12:22)
[2023-09-29] MEDS ORDERED: ATOR40TA69 PO (12:22)
[2023-09-29] MEDS ORDERED: CLOP-31 PO (12:22)
[2023-09-29] MEDS ORDERED: APIX2.5T PO (12:22)
[2023-09-29] MEDS ORDERED: METO50 PO (12:22)
== END 2023-09-29 13:19 | disposition home or self-care (01) | DRG 193 ==
LOC: EDH 18:09 → EDHIP 09-25 01:23 → 2DH 09-25 16:03
PROVIDERS: ADMIT Internal Medicine; ATTEND Internal Medicine
DX: J10.1 Influenza due to other identified influenza virus with other respiratory manifestations (principal); I21.A1 Myocardial infarction type 2; I50.23 Acute on chronic systolic (congestive) heart failure; I48.21 Permanent atrial fibrillation; I13.0 Hypertensive heart and chronic kidney disease with heart failure and stage 1 through stage 4 chronic kidney disease, or unspecified chronic kidney disease; N18.4 Chronic kidney disease, stage 4 (severe); I42.0 Dilated cardiomyopathy; Z20.822 Contact with and (suspected) exposure to COVID-19; I45.9 Conduction disorder, unspecified; E78.5 Hyperlipidemia, unspecified; E89.0 Postprocedural hypothyroidism; I25.10 Atherosclerotic heart disease of native coronary artery without angina pectoris; I34.81 Nonrheumatic mitral (valve) annulus calcification; N40.0 Benign prostatic hyperplasia without lower urinary tract symptoms; Z79.899 Other long term (current) drug therapy; Z82.49 Family history of ischemic heart disease and other diseases of the circulatory system; Z87.891 Personal history of nicotine dependence; Z96.653 Presence of artificial knee joint, bilateral; Z79.01 Long term (current) use of anticoagulants; Z95.0 Presence of cardiac pacemaker
CPT/HCPCS: 36415; 71045; 80048; 80053; 81001; 83735; 83880; 84100; 84484; 85025; 85027; 85610; 85651; 85730; 87040; 87426; 87804; 93005; 93306; G0378; J0282; J1644; J1650; J1940; J3490; J7060

== ENCOUNTER → 2023-12-25 | Outpatient (CLI) | payer OTHER ==
[~2023-12-25] MED LIST changes: +ALBU18HF7 IH; +APIX2.5T PO; +ATOR40TA69 PO; +CLOP-31 PO; +FURO20TA6 PO; -FURO40TA7 PO; +MEMA10TA21 PO; -MEMA10TA55 PO; -METO25TA6 PO; +METO50 PO; -RIVA15TA PO
== END | disposition home or self-care (01) ==
LOC: SHCH 10:00
PROVIDERS: ATTEND Internal Medicine Cardiovascular Disease
DX: I08.1 Rheumatic disorders of both mitral and tricuspid valves (principal); I25.10 Atherosclerotic heart disease of native coronary artery without angina pectoris
CPT/HCPCS: 93306

== ENCOUNTER → 2024-05-08 | Outpatient (CLI) | payer OTHER | END | disposition home or self-care (01) | LOC: LAB 13:52 | PROVIDERS: ATTEND Internal Medicine Cardiovascular Disease | DX: I10 Essential (primary) hypertension (principal) | CPT/HCPCS: 36415; 83880 ==

== ENCOUNTER 2024-06-09 12:33 | Emergency (ER) | payer BC, MEDICARE, OTHER ==
[~2024-06-09] VITALS: Ht 175.3 cm; Wt 83.9 kg
--- NOTE | 2024-06-09 12:42 | ERN ---
General Chief Complaint: Hypertension Stated Complaint: HYPERTENSION Time Seen by MD: 12:36 History of Present Illness Initial Comments 79-year-old male brought in by EMS from the [facility] for hypertension. According to the patient he had routine follow up. He was found to have high blood pressure. They gave him an unknown medication. EMS was called. EMS reports that the patient has been asymptomatic with them. His blood pressure 158/99. Patient has no complaints. No headache, vision changes, neck stiffness, chest pain, dyspnea, shortness of breath, or other. Allergies: Coded Allergies: No Known Drug Allergies (Verified Allergy, 03/20/12) Home Meds Active Scripts Metoprolol Tartrate (Lopressor 50Mg Tab) 50 Mg Tab, 100 MG PO BID, #120 TAB Prov:LATRICIA MCKEON MD 09/29/23 Furosemide (Lasix 20Mg Tab) 20 Mg Tablet, 20 MG PO BID@,, #60 TAB Prov:LATRICIA MCKEON MD 09/29/23 Clopidogrel Bisulfate (Plavix) 75 Mg Tablet, 75 MG PO DAILY, #30 TAB Prov:LATRICIA MCKEON MD 09/29/23 Atorvastatin Calcium (LIPITOR) 40 Mg Tablet, 40 MG PO HS, #30 TAB Prov:LATRICIA MCKEON MD 09/29/23 Apixaban (Eliquis) 2.5 Mg Tablet, 2.5 MG PO BID, #60 TAB Prov:LATRICIA MCKEON MD 09/29/23 Reported Medications Albuterol Sulfate (Ventolin Hfa) 90 Mcg Hfa.aer.ad, 18 GM IH Q4HPRN PRN for RESPIRATORY SYMPTOMS, INHALER 09/25/23 Amlodipine Besylate (Amlodipine Besylate) 5 Mg Tablet, 5 MG PO DAILY, TAB 05/19/23 Ferrous Sulfate (Ferrous Sulfate) 325 Mg (65 Mg Iron) Tablet, 325 MG PO DAILY, TAB 05/19/23 Memantine HCl (Memantine HCl) 10 Mg Tablet, 10 MG PO BID, TAB 05/19/23 Pantoprazole Sodium (Pantoprazole Sodium) 40 Mg Tablet.dr, 40 MG PO DAILY, TAB 05/19/23 Amiodarone HCl (Amiodarone HCl) 200 Mg Tablet, 200 MG PO DAILY, TAB 05/19/23 Past Medical History Past Medical History: A-Fib, Heart Disease, Hypertension, Kidney Infection Medical History Other: KIDNEY PROBLEMS Past Surgical History: Other Surgical History Other: BILATERAL TOTAL KNEE REPLACEMENTS , THYROIDECTOMY Family History Family History: HTN Social History Social History: ETOH, Lives with family, Other ROS Dictation CONSTITUTIONAL: No chills, no fever, no weakness, no diaphoresis, no malaise. HEAD/FACE: No signs of trauma. EENT: No eye pain, no blurred vision, no tearing, no double vision, no ear pain, no ear discharge, no nose pain, no nasal congestion, no throat pain, no throat swelling, no mouth pain. RESPIRATORY: No cough, no orthopnea, no SOB, no stridor, no wheezing. CARDIOVASCULAR: No chest pain, no edema, no palpitations, no syncope. GASTROINTESTINAL/ABDOMINAL: No abdominal pain, no constipation, no diarrhea, no nausea, no vomiting. GENITOURINARY: No abnormal discharge, no dysuria, no frequent urination, no hematuria. No complaints of pain in the genitals. MUSCULOSKELETAL: No back pain, no gout, no joint pain, no joint swelling, no muscle pain, no muscle stiffness, no neck pain. INTEGUMENTARY: No change in color, no change in hair/nails, no dryness, no lesion, no lumps, no rash. NEUROLOGICAL/PSYCH: No anxiety, not depressed, no emotional problem, no headache, no numbness, no pre-existing deficit, no history of seizures, no t remors, no weakness. HEMATOLOGIC/LYMPHATIC: Not anemic, no history of blood clots, no apparent bleeding, no bruising, glands not swollen. All Systems Negative, Except as Noted. Physical Exam Physical Exam Dictation VITAL SIGNS: Reviewed. GENERAL APPEARANCE: Alert, oriented x3, no acute distress HEAD AND FACE: Non-traumatic. EYES: PERRL, pink conjunctivas, eyelid no trauma, anterior chamber clear. EARS: Pinnas intact and no signs of trauma or erythema. Ear canals clear and no discharge. TMs no erythema. NOSE: No discharge, no bleeding. OROPHARYNX: Mouth normal, teeth no caries, tongue pink. Pharynx clear, no erythema. Tonsils no exudates, no abscesses noted. Mucous membrane moist. NECK: Supple, non-tender, no thyromegaly, no masses, no JVD, no bruits. BREAST: Deferred. CHEST: No tenderness, no crepitus, no paradoxical movement, no retractions. LUNGS: Clear, well-ventilated, symmetric, no rales, no wheezing, no rhonchi, no stridor, good breath sounds bilaterally. HEART: Regular rate, regular rhythm, no murmur, no gallops. VASCULAR: No peripheral edema. ABDOMEN: Soft, positive bowel sounds, nondistended, no guarding, nontender, no rebound, no masses no hepatomegaly, no splenomegaly, no Cadet's sign, no h ernias. RECTAL: Deferred. GENITAL: Deferred. NEUROLOGICAL: Normal speech, gross motor function intact, gross sensory functi on intact. MUSCULOSKELETAL: Neck nontender, full range of motion, back nontender, full range of motion. EXTREMITIES: Nontender, full range of motion. SKIN: Color pink, dry, no turgor, no rash, no lacerations, no abrasions, no contusions. LYMPHATICS: Deferred. Results Laboratory and Microbiology Lab and Micro Result Laboratory Tests Test 06/09/24 13:03 White Blood Count 6.7 K/uL (4.8-10.8) Red Blood Count 4.31 MIL/uL (4.50-6.20) L Hemoglobin 13.2 g/dL (14.0-18.0) L Hematocrit 39.7 % (42-54) L Mean Corpuscular Volume 92.1 fL (79-99) Mean Corpuscular Hemoglobin 30.6 pg (27.0-33.0) Mean Corpuscular Hemoglobin Concent 33.2 g/dL (32.0-36.0) Red Cell Distribution Width 12.7 % (11.0-15.5) Platelet Count 190 K/uL (130-400) Mean Platelet Volume 9.6 fL (7.5-10.5) Immature Granulocyte % (Auto) 0.4 % (0-1) Neutrophils (%) (Auto) 74.3 % (40.0-77.0) Lymphocytes (%) (Auto) 12.9 % (21.0-51.0) L Monocytes (%) (Auto) 9.6 % (3.0-13.0) Eosinophils (%) (Auto) 2.4 % (0.0-8.0) Basophils (%) (Auto) 0.4 % (0.0-5.0) Neutrophils # (Auto) 5.0 K/uL (1.8-7.7) Lymphocytes # (Auto) 0.9 K/uL (1.0-4.8) L Monocytes # (Auto) 0.6 K/uL (0.1-1.0) Eosinophils # (Auto) 0.16 K/uL (0.00-0.70) Basophils # (Auto) 0.03 K/uL (0.00-0.20) Absolute Immature Granulocyte (auto 0.03 K/uL (0-1) Nucleated Red Blood Cells 0.0 % (0.0-0.19) Sodium Level 141 mmol/L (136-145) Potassium Level 4.1 mmol/L (3.5-5.1) Chloride Level 103 mmol/L (101-111) Carbon Dioxide Level 28 mmol/L (21-32) Blood Urea Nitrogen 37 mg/dL (7-18) H Creatinine 1.9 mg/dL (0.5-1.3) H Glomerular Filtration Rate Calc 35 mL/min (>90) Random Glucose 96 mg/dL (70-105) Total Calcium 9.1 mg/dL (8.5-10.1) Total Creatine Kinase 45 U/L (21-232) Troponin I High Sensitivity 12 ng/L (4-75) B-Type Natriuretic Peptide 975 pg/mL (0-100) H MDM CC: Episode of hypertension. Patient was asymptomatic. Comorbidities: Hypertension, early onset dementia, atrial fibrillation. , advanced age Limitations by social determinants of health: None Differential diagnosis: Asymptomatic hypertension, hypertension, ACS, liver disease, kidney disease, other. On arrival here placed in his blood pressure is stable, 149/76. Other vital signs stable remained stable. Clinical exam is unremarkable. Cranial nerves are intact there is no signs of stroke. He has no symptoms currently. EKG shows atrial fibrillation rate of 106 normal axis good R-wave progression intervals are stable. Based on external chart review patient does have a history of atrial fibrillation. This is not new onset. Independently interpreted by me. Labs were no leukocytosis, no anemia. Chemistry panel shows normal electrol ytes, creatinine 1.9 BUN of 37. BNP is mildly elevated at 75 troponin is stable CK is stable. I performed an external chart review and found previous labs. Patient does have a history of CKD and this is baseline renal function for the patient. Chest x-ray per my independent interpretation shows cardiomegaly, no vascular congestion, no pleural infiltrates. No abnormalities otherwise. Independently interpreted by me. The patient was no complaints. Asymptomatic hypertension. He received some sort of medication prior to arrival and this is improved. He does have blood pressure medications at home. [facility] This point in time I do not see any indication for further workup. He has no symptoms and stable vital signs. We will DC. REASON: hypertension ORDERING PHYSICIAN: EDITH ROSALES DO PROCEDURE: CXR1VW - CHEST 1VW CHEST 1VW REASON: hypertension COMPARISON: None. FINDINGS: Single view of the chest was obtained. Lungs are clear. Borderline, unchanged. Is no pulmonary vascular congestion. Mediastinum and bony thorax appear unremarkable. 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 IMPRESSION: 1. Borderline cardiomegaly, unchanged, no acute finding. ED Course Orders Procedure Category Date Status Time Cbc With Differential LAB 06/09/24 Complete 12:36 B-Type Natriuretic LAB 06/09/24 Complete Peptide 12:36 Chest 1vw RAD 06/09/24 Resulted 12:36 12 Lead Ekg Tracing- EKG 06/09/24 Resulted Technical 12:36 Creatine Kinase, Total LAB 06/09/24 Complete 12:36 Troponin I High LAB 06/09/24 Complete Sensitivity 12:36 Urinalysis Profile LAB 06/09/24 Logged 12:36 Basic Metabolic Panel LAB 06/09/24 Complete 12:36 Vital Signs Date Time Temp Pulse Resp B/P (MAP) Pulse Ox O2 Delivery O2 Flow Rate FiO2 06/09/24 14:28 98.1 89 18 156/94 97 Room Air* 0 21 06/09/24 13:02 98.1 107 18 149/76 98 Room Air* 0 21 06/09/24 12:35 98.1 102 20 150/99 98 Room Air 0 DX & DISP Disposition: Discharge Departure Impression: Primary Impression: Asymptomatic hypertension Additional Impression: CKD (chronic kidney disease) Condition: Stable Additional Instructions: You had an episode of asymptomatic hypertension today. On arrival to the emergency department her blood pressure has been stable. Your lab work is unremarkable. Your EKG is baseline for you. Your chest x-ray is baseline for you. Please continue with all your home medications. [facility] Return to the emergency department as needed. Referrals: MAX VILLA MD (PCP) EDITH ROSALES DO Jun 09, 2024 12:42
--- NOTE | 2024-06-09 12:52 | EKG ---
[facility] Test Date: 2024-06-09 Test Time: 12:43:19 Pat Name: JAG AVERY Department: [facility] Room: Gender: M Dispensary Technician: [facility] : 1945 Requested By: EDITH ROSALES Order Number: [id number] Reading MD: Tiffanie Rust Measurements Intervals [place] Rate: 106 P: 0 NV: 0 QRS: 40 QRSD: 94 T: 9 QT: 355 QTc: 472 Interpretive Statements Atrial fibrillation Compared to ECG 09/24/2023 21:03:07 Sinus tachycardia no longer present Myocardial infarct finding no longer present Early repolarization no longer present Electronically Signed On 06-09-2024 13:34:02 POLITICAL THEORY PROFESSOR by Tiffanie Rust Please click the below link to view image of tracing.
[2024-06-09 13:24] LABS: BASOPHILS # (AUTO) 0.03 K/uL (0.00-0.20); BASOPHILS % (AUTO) 0.4 % (0.0-5.0); EOSINOPHILS # (AUTO) 0.16 K/uL (0.00-0.70); EOSINOPHILS % (AUTO) 2.4 % (0.0-8.0); HEMATOCRIT 39.7 % (42-54); IMMATURE GRANULOCYTE ABSOLUTE 0.03 K/uL (0-1); LYMPHOCYTES # (AUTO) 0.9 K/uL (1.0-4.8); LYMPHOCYTES % (AUTO) 12.9 % (21.0-51.0); MEAN CORPUSCULAR HEMOGLOBIN 30.6 pg (27.0-33.0); MEAN CORPUSCULAR HGB CONC 33.2 g/dL (32.0-36.0); MEAN CORPUSCULAR VOLUME 92.1 fL (79-99); MONOCYTES # (AUTO) 0.6 K/uL (0.1-1.0); MONOCYTES % (AUTO) 9.6 % (3.0-13.0); NEUTROPHILS % (AUTO) 74.3 % (40.0-77.0); PLATELET COUNT (AUTO) 190 K/uL (130-400); RED BLOOD CELL COUNT(AUTO) 4.31 MIL/uL (4.50-6.20); RED CELL DISTRIBUTION WIDTH 12.7 % (11.0-15.5); WHITE BLOOD COUNT (AUTO) 6.7 K/uL (4.8-10.8)
[2024-06-09 13:33] LABS: CREATININE 1.9 mg/dL (0.5-1.3); POTASSIUM 4.1 mmol/L (3.5-5.1)
[2024-06-09 13:56] LABS: B-TYPE NATRIURETIC PEPTIDE 975 pg/mL (0-100)
--- NOTE | 2024-06-09 14:04 | HMCIMG ---
CHEST 1VW REASON: hypertension COMPARISON: None. FINDINGS: Single view of the chest was obtained. Lungs are clear. Borderline, unchanged. Is no pulmonary vascular congestion. Mediastinum and bony thorax appear unremarkable. 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 IMPRESSION: 1. Borderline cardiomegaly, unchanged, no acute finding.
[2024-06-09 14:28] VITALS: BP 156/94; PULSE 89; RESP 18; TEMP 98.1; O2SAT 97
== END 2024-06-09 15:05 | disposition home or self-care (01) ==
LOC: EDH 12:33
DX: I12.9 Hypertensive chronic kidney disease with stage 1 through stage 4 chronic kidney disease, or unspecified chronic kidney disease (principal); N18.9 Chronic kidney disease, unspecified; F03.90 Unspecified dementia, unspecified severity, without behavioral disturbance, psychotic disturbance, mood disturbance, and anxiety; I48.91 Unspecified atrial fibrillation; Z79.01 Long term (current) use of anticoagulants; Z79.02 Long term (current) use of antithrombotics/antiplatelets; Z79.899 Other long term (current) drug therapy; Z90.89 Acquired absence of other organs; Z96.653 Presence of artificial knee joint, bilateral; Z98.890 Other specified postprocedural states
CPT/HCPCS: 36415; 71045; 80048; 82550; 83880; 84484; 85025; 93005; 99285

== ENCOUNTER → 2024-07-26 | Outpatient (CLI) | payer OTHER ==
[2024-07-26 16:21] LABS: BASOPHILS # (AUTO) 0.04 K/uL (0.00-0.20); BASOPHILS % (AUTO) 0.7 % (0.0-5.0); EOSINOPHILS # (AUTO) 0.12 K/uL (0.00-0.70); EOSINOPHILS % (AUTO) 2.1 % (0.0-8.0); HEMATOCRIT 40.2 % (42-54); IMMATURE GRANULOCYTE ABSOLUTE 0.03 K/uL (0-1); LYMPHOCYTES # (AUTO) 0.8 K/uL (1.0-4.8); MEAN CORPUSCULAR HEMOGLOBIN 30.2 pg (27.0-33.0); MEAN CORPUSCULAR HGB CONC 32.3 g/dL (32.0-36.0); MEAN CORPUSCULAR VOLUME 93.3 fL (79-99); MONOCYTES # (AUTO) 0.2 K/uL (0.1-1.0); MONOCYTES % (AUTO) 3.9 % (3.0-13.0); NEUTROPHILS # (AUTO) 4.5 K/uL (1.8-7.7); NEUTROPHILS % (AUTO) 78.8 % (40.0-77.0); PLATELET COUNT (AUTO) 246 K/uL (130-400); RED BLOOD CELL COUNT(AUTO) 4.31 MIL/uL (4.50-6.20); RED CELL DISTRIBUTION WIDTH 13.3 % (11.0-15.5); WHITE BLOOD COUNT (AUTO) 5.7 K/uL (4.8-10.8)
[2024-07-26 16:36] LABS: CREATININE 2.2 mg/dL (0.5-1.3)
[2024-07-26 16:45] LABS: B-TYPE NATRIURETIC PEPTIDE 999 pg/mL (0-100)
== END | disposition home or self-care (01) ==
LOC: LAB 13:58
PROVIDERS: ATTEND Internal Medicine Cardiovascular Disease
DX: I10 Essential (primary) hypertension (principal); I48.21 Permanent atrial fibrillation
CPT/HCPCS: 36415; 80048; 83880; 85025

== ENCOUNTER → 2024-08-04 | Outpatient (CLI) | payer OTHER ==
[2024-08-04 12:35] LABS: CREATININE 3.3 mg/dL (0.5-1.3); POTASSIUM 4.4 mmol/L (3.5-5.1)
== END | disposition home or self-care (01) ==
LOC: LAB 10:42
PROVIDERS: ATTEND Internal Medicine Cardiovascular Disease
DX: I10 Essential (primary) hypertension (principal)
CPT/HCPCS: 36415; 80048

== ENCOUNTER → 2024-08-16 | Outpatient (CLI) | payer OTHER ==
[2024-08-16 12:24] LABS: CREATININE 3.2 mg/dL (0.5-1.3); POTASSIUM 3.7 mmol/L (3.5-5.1)
== END | disposition home or self-care (01) ==
LOC: LAB 10:39
PROVIDERS: ATTEND Internal Medicine Cardiovascular Disease
DX: I10 Essential (primary) hypertension (principal)
CPT/HCPCS: 36415; 80048